=== PATIENT | male | born 1975 | race Caucasian/White ===

== ENCOUNTER 2022-03-05 09:56 | Day surgery (SDC) | payer MEDICAID ==
[~2022-03-05] VITALS: Ht 172.7 cm; Wt 117.9 kg
[2022-03-05] MEDS ORDERED: MIDAZOLAM 2 MG/2 ML VIAL ONE ×2 (10:47→10:48)
[2022-03-05] MEDS ORDERED: diphenhydrAMINE 50 MG/ML VIAL ONE (10:47)
[2022-03-05] MEDS ORDERED: fentaNYL citrate 0.05 MG/ML VIAL ONE (10:47)
[2022-03-05] MEDS ORDERED: MIDAZOLAM 2 MG/2 ML VIAL IVP ONE (13:20)
[2022-03-05] MEDS ORDERED: diphenhydrAMINE 50 MG/ML VIAL IVP ONE (13:20)
[2022-03-05] MEDS ORDERED: fentaNYL citrate 0.05 MG/ML VIAL IVP ONE (13:20)
== END 2022-03-05 12:12 | disposition home or self-care (01) ==
LOC: MMU 09:56 → MOR 09:56
PROVIDERS: ATTEND Internal Medicine Gastroenterology
DX: R74.01 Elevation of levels of liver transaminase levels (principal); K27.9 Peptic ulcer, site unspecified, unspecified as acute or chronic, without hemorrhage or perforation; E66.01 Morbid (severe) obesity due to excess calories; D64.9 Anemia, unspecified; Z68.39 Body mass index [BMI] 39.0-39.9, adult; Z20.822 Contact with and (suspected) exposure to COVID-19; Z79.899 Other long term (current) drug therapy
CPT/HCPCS: 43239; 87426; 88305; 88312; 88313; 88342; J1200; J2250; J3010